=== PATIENT | male | born 1985 | race Caucasian/White ===

== ENCOUNTER → 2019-02-03 | Outpatient (CLI) | payer BC | END | disposition home or self-care (01) | LOC: LAB 17:23 | PROVIDERS: ATTEND Internal Medicine Gastroenterology | DX: R10.9 Unspecified abdominal pain (principal) | CPT/HCPCS: 80053; 82150; 83690; 85025 ==

== ENCOUNTER 2019-03-10 07:47 | Day surgery (SDC) | payer BC ==
[~2019-03-10] VITALS: Ht 172.7 cm; Wt 71.8 kg
[2019-03-10 08:39] VITALS: Ht 172.7 cm; Wt 71.8 kg
[2019-03-10 09:12] VITALS: BP 127/82; PULSE 89; RESP 18
[2019-03-10] MEDS ORDERED: LIDOCAINE 4% SOLUTION 50 ML BTL ONE (09:14)
[2019-03-10] MEDS ORDERED: FENTAnyl 50 MCG/ML VIAL ONE (10:22)
[2019-03-10] MEDS ORDERED: MIDAZOLAM 1 MG/ML 2 ML INJ ONE ×2 (10:22)
== END 2019-03-10 12:10 | disposition home or self-care (01) ==
LOC: GIL 07:47
PROVIDERS: ATTEND Internal Medicine Gastroenterology
DX: R19.4 Change in bowel habit (principal); K57.31 Diverticulosis of large intestine without perforation or abscess with bleeding; K20.8 Other esophagitis
CPT/HCPCS: 43239; 45378; 88305; 88312; 88313; J2250; J3010